=== PATIENT | male | born 2000 | race Caucasian/White ===

== ENCOUNTER 2024-08-22 18:48 | Emergency (ER) | payer OTHER, SELFPAY ==
[2024-08-22] VITALS (8 sets, daily range): BP systolic 124–159; BP diastolic 56–73; PULSE 64–91; RESP 16; TEMP 37.1; O2SAT 96–100; BMI 26.4
--- NOTE | 2024-08-22 18:50 | ED.HA ---
HPI - Headache General Chief Complaint: Headache Stated Complaint: Vomiting, Migraine Time Seen by Provider: 08/22/24 18:50 History of Present Illness HPI Narrative: Patient is a 24-year-old male comes into the ED from home for evaluation of headache, he states it started at around 2:00 pm., states that he did try taking Tylenol at around 3 with very minimal relief. He states that he had persistent headache and had 1 episode of nonbilious nonbloody emesis therefore decided come into the ED for further evaluation treatment. Patient without any meningeal signs. No trauma or falls not on any blood thinners. NIH of 0 at time of initial evaluation. Denies any other symptoms at this time Related Data Allergies Allergy/AdvReac Type Severity Reaction Status Date / Time No Known Drug Allergies Allergy Verified 08/22/24 18:54 Review of Systems Review of Systems Narrative: General: Denies fever, chills, weight loss HEENT: Positive headache, denies eye drainage, eye irritation, head trauma, sore throat, voice change Cardiovascular: Denies any chest pain, palpitations, tachycardia Respiratory: Denies any shortness of breath, cough, wheeze, stridor GI/: Positive nausea and vomiting Denies any abdominal pain, diarrhea, bright red blood per rectum, melanotic stools, urinary frequency, urinary retention, dysuria, hematuria MSK: Denies any joint pain, muscle pains, swelling Skin: Denies any rashes, lesions, discoloration Neuro: Denies any headache, lightheadedness, dizziness, fainting, weakness Psych: Denies SI/HI Patient History Social History Smoking Status: Never smoker Exam Narrative Exam Narrative: General: Cooperative, well-developed, not in acute distress HEENT: Normocephalic, atraumatic, PERRLA, normal sclera, eyelids normal Neck: Active full range of motion, atraumatic Chest: Normal to inspection, negative crepitus, no overlying erythema ecchymosis Respiratory: Normal respiratory effort, not in acute respiratory distress, clear to auscultation bilaterally negative cough, wheeze, tachypnea, rhonchi, rales Cardiology: Regular rate rhythm negative gallop, murmur, rubs GI/: No tenderness to palpation, soft, non rigid, normal to inspection, exam deferred MSK: Full active range of motion in all 4 extremities, atraumatic, no tenderness to palpation of any bony prominences Skin: No rashes or lesions noted Neuro: Alert awake oriented x3, moves all 4 extremities spontaneously, cranial nerves intact, able to answer all questions appropriately follows commands appropriately Psych: Cooperative, negative suicidal or homicidal ideations Initial Vital Signs Initial Vital Signs: Vital Signs Temperature 98.8 F 08/22/24 18:54 Pulse Rate 89 08/22/24 18:54 Respiratory Rate 16 08/22/24 18:54 Blood Pressure 159/73 H 08/22/24 18:54 Pulse Oximetry 98 08/22/24 18:54 Oxygen Delivery Method Room Air 08/22/24 18:54 Course Orders Ordered: ED Orders 08/22/24 18:55 CT head/brain wo con Stat 08/22/24 18:56 CBC Auto Diff [Complete Blood Count AUTO DIFF] Stat CMP [Comprehensive Metabolic Panel] Stat Discontinued Medications Dexamethasone (Dexamethasone 10 Mg/Ml Vial) 10 mg IV NOW ONE Stop: 08/22/24 18:56 Last Admin: 08/22/24 19:17 Dose: 10 mg Documented By: BETH Diphenhydramine HCl (Diphenhydramine 50 Mg/Ml Vial) 25 mg IV NOW ONE Stop: 08/22/24 18:56 Last Admin: 08/22/24 19:17 Dose: 25 mg Documented By: BETH Sodium Chloride (Normal Saline 0.9%) 1,000 mls @ 1,000 mls/hr IV BOLUS ONE Stop: 08/22/24 19:54 Last Admin: 08/22/24 19:20 Dose: 1,000 mls/hr Documented By: BETH Prochlorperazine (Prochlorperazine 10 Mg/2 Ml Vial) 10 mg IV NOW ONE Stop: 08/22/24 18:56 Last Admin: 08/22/24 19:18 Dose: 10 mg Documented By: BETH Vital Signs Vital signs: Vital Signs - 8 hr 08/22/24 18:54 08/22/24 19:18 Temperature 98.8 F Pulse Rate 89 78 Respiratory Rate 16 Blood Pressure 159/73 H 157/70 H Pulse Oximetry 98 Oxygen Delivery Method Room Air MDM - Headache Differential Diagnosis Differential diagnosis: Likely migraine, tension headache, subarachnoid hemorrhage, headache and meningitis Imaging Data CT scan - head: Radiologist's Impression: [address] [address] [address] Scan Report Signed Patient: Per Price MR#: [id number] : 2000 Acct:[id number] Age/Sex: 24 / M Date of Service: 08/22/24 Loc: ED Accession Number: [id number] Procedure: CT head/brain wo con Ordering Provider: Martin Cates D.O. PROCEDURE: CT HEAD/BRAIN WO CON INDICATIONS: headache TECHNIQUE: Noncontrast 4.5 mm thick angled axial sections acquired from the foramen magnum to the vertex, with coronal and sagittal reformats. For radiation dose reduction, the following was used: automated exposure control, adjustment of mA and/or kV according to patient size. COMPARISON: None. FINDINGS: Image quality: Diagnostic. CSF spaces: Basal cisterns are patent. No extra-axial fluid collections. Ventricles are normal in size and shape. Brain: No midline shift. No intracranial mass effect or hemorrhage. Murray-white matter interface is normal. Skull and face: Calvarium and visualized facial bones are intact, without suspicious lesions. Sinuses: Visualized sinuses and mastoids are clear. IMPRESSION: No acute intracranial pathology. MDM Narrative Medical decision making narrative: 24-year-old male without any significant past medical history comes into the ED from home for evaluation of headache nausea and vomiting, states it started around 2:00 p.m. today, states that it started spontaneously but not worse headache of life, no thunderclap headache. Denies any trauma or falls NIH of 0 no focal deficits, he states that headache did persist after several hours did try Tylenol with very minimal relief, states that at around 5:00 p.m., patient states that he had 1 episode of nonbilious nonbloody emesis therefore decided come into the ED for further evaluation treatment. Patient NIH of 0 no focal deficits, no meningeal signs. Afebrile. Patient had CT scan of the head without any acute findings. Patient had symptomatic treatment with resolution of headache. Patient was given strict return precautions he verbalized understanding of this and agrees to being discharged home with outpatient follow up. Discharge Plan Departure Patient Disposition: Home Clinical Impression: Headache Instructions: DI for Headache Activity Restrictions/Additional Instructions: Please follow up with the primary care doctor Please read the discharge instructions sheet carefully and bring all papers to all doctor follow-up visits, as it may contain information that your doctor may want to see. Disease processes change and evolve, if your symptoms worsen or if you develop any new symptoms that are concerning to you please return for evaluation. Your evaluation today does not show any evidence of any life-threatening/serious illnesses requiring admission to the hospital or surgery. Please follow-up with your doctor for re-evaluation in approximately 1 day. Seek immediate medical attention for any worrisome symptoms. *If you do not have a primary care provider please contact the [facility] Resource line at [phone]. They will ask some questions about your medical history and help get you set up with a doctor in the community. Referrals: Provider,Hamida BAE [Primary Care Provider, Family Practice] Stand Alone Forms: Patient Portal/API
--- NOTE | 2024-08-22 18:55 | DI.CT.S_ITS ---
PROCEDURE: CT HEAD/BRAIN WO CON INDICATIONS: headache TECHNIQUE: Noncontrast 4.5 mm thick angled axial sections acquired from the foramen magnum to the vertex, with coronal and sagittal reformats. For radiation dose reduction, the following was used: automated exposure control, adjustment of mA and/or kV according to patient size. COMPARISON: None. FINDINGS: Image quality: Diagnostic. CSF spaces: Basal cisterns are patent. No extra-axial fluid collections. Ventricles are normal in size and shape. Brain: No midline shift. No intracranial mass effect or hemorrhage. Murray- white matter interface is normal. Skull and face: Calvarium and visualized facial bones are intact, without suspicious lesions. Sinuses: Visualized sinuses and mastoids are clear. IMPRESSION: No acute intracranial pathology. Approved by: Tulio Ugarte M.D. on 08/22/2024 at 19:26
[2024-08-22] MEDS: DEXAMETHASONE 10 MG/ML VIAL IV (19:17)
[2024-08-22] MEDS: diphenhydrAMINE 50 MG/ML VIAL 25 MG IV (19:17)
[2024-08-22] MEDS: PROCHLORPERAZINE 10 MG/2 ML VIAL IV (19:18)
[2024-08-22] MEDS: SODIUM CHLORIDE 0.9% 1,000 ML 1000 ML IV (19:20)
== END 2024-08-22 20:41 | disposition home or self-care (01) ==
PROVIDERS: Emergency Provider Student in an Organized Health Care Education/Training Program
DX: R51.9 Headache, unspecified (principal)
CPT/HCPCS: 70450; 96361; 96365; 96374; 96375; 99283; 99284; J0780; J1100; J1200